=== PATIENT | male | born 1985 | race African-American/Black ===

== ENCOUNTER 2022-12-07 07:48 | Emergency (ER) | payer OTHER ==
[2022-12-07 07:58] VITALS: BP 141/84; O2SAT 99
--- NOTE | 2022-12-07 08:26 | ED Physician Documentation ---
PD HPI MALE - Stated complaint Stated Complaint: - Chief complaint Chief Complaint: General - History obtained from History obtained from: Patient - History of Present Illness Timing - onset: Unknown Timing - duration: Years Timing - details: Still present in ED Associated symptoms: Other (mass in skin on proximal medial thigh) PD HPI MALE CONTRIB FACTORS: Sexually active Similar symptoms before: No diagnosis Recently seen: Not recently seen - Additional information Additional information: Previously well 37-year-old Juvencio Wong presents to the emergency department this morning with concerns about a mass under the skin on his left medial thigh. He believes he has felt this previously and it is nontender and without surrounding swelling or erythema. He is uncertain exactly how long its been since he has noticed this previously but he thinks it may have been years. He has had ingrown hairs in his groin previously and those have spontaneously resolved. He denies mass in the testicle. He does state that he is overly concerned about this mass. Review of Systems Constitutional: denies: Fever Respiratory: denies: Cough GI: denies: Vomiting : denies: Dysuria, Frequency, Discharge Skin: denies: Rash Musculoskeletal: denies: Neck pain, Back pain, Extremity pain Neurologic: denies: Generalized weakness, Focal weakness, Numbness PD PAST MEDICAL HISTORY - Past Medical History Past Medical History: Yes - Past Surgical History Past Surgical History: No - Present Medications Home Medications: Ambulatory Orders Medication Instructions Recorded Confirmed No Known Home Medications 12/07/22 12/07/22 - Allergies Allergies/Adverse Reactions: Allergies Allergy/AdvReac Type Severity Reaction Status Date / Time No Known Drug Allergies Allergy Verified 12/07/22 07:58 - Social History Does the pt smoke?: No Smoking Status: Never smoker Does the pt drink ETOH?: No Does the pt have substance abuse?: No - Immunizations Immunizations are current?: Yes - POLST Patient has POLST: No PD ED PE NORMAL - Vitals Vital signs reviewed: Yes (hypertensive mild ) - General General: Alert and oriented X 3, No acute distress, Well developed/nourished - HEENT HEENT: Atraumatic, PERRL, EOMI - Respiratory Respiratory: No respiratory distress - Derm Derm: Normal color, Warm and dry, No rash, Other (over the medial aspect of the proximal thigh on the left there is a 1.5cm X .5cm non-tender fleshy mass that is mobile. Most consistent with sebaceous cyst, not inflammed. No inguinal masses. ) - Extremities Extremities: No deformity, No edema - Neuro Neuro: Alert and oriented X 3, meeting facilitator 2-12 intact, No motor deficit, No sensory deficit, Normal speech Eye Opening: Spontaneous Motor: Obeys Commands Verbal: Oriented GCS Score: 15 - Psych Psych: Normal mood, Normal affect Results - Vitals Vitals: Vital Signs - 24 hr 12/07/22 07:55 Temperature 36.7 C Heart Rate 63 Respiratory 20 Rate Blood Pressure 141/84 H O2 Saturation 99 Oxygen O2 Source Room air PD Medical Decision Making - ED course Complexity details: considered differential, d/w patient ED course: 37-year-old male has become concerned about a mass in his skin that is most consistent with a sebaceous cyst. This does not appear inflamed. There has not been a change in the mass. The patient's concern is addressed with further questioning about his concerns for testicular cancer. The patient did have concerns for testicular cancer he has no masses palpable. The sebaceous cyst is not in a anatomic location consistent with a lymph node.I will refer the patient to dermatology for excision at his request. Departure - Departure Disposition: Home, Self Care Clinical Impression: Sebaceous cyst Condition: Stable Instructions: ED Cyst Sebaceous [facility] SUDHIR GRIMES MD [Physician No Access] - [facility] [Provider Group] Comments: Juvencio, Today it looks like this mass in your thigh is a cebaceous cyst, it does not appear to be inflamed. No specific treatment is indicated unless this becomes inflamed or it bothers you in some way. It looks like this is bothering you and I have made a referral to dermatology. This does not appear to be a lymph node. Forms: Activity restrictions
== END 2022-12-07 08:50 | disposition home or self-care (01) ==
LOC: ED 07:48
DX: L72.3 Sebaceous cyst (principal)
CPT/HCPCS: 99282; 99283